=== PATIENT | male | born 1970 | race Caucasian/White ===

== ENCOUNTER 2020-01-12 14:54 | Emergency (ER) | payer SELFPAY ==
[~2020-01-12] VITALS: Ht 178 cm; Wt 68.0 kg
--- NOTE | 2020-01-12 15:35 | ED EENT ---
History of Present Illness General Chief Complaint: Dental Problems/Pain Stated Complaint: DENTAL PAIN Nursing Triage Note: Patient reports L sided dental pain starting on Tuesday the 08 of January and swelling that started last night. Source: patient Exam Limitations: no limitations History of Present Illness Date Seen by Provider: Jan 12, 2020 Time Seen by Provider: 15:32 Initial Comments This is a well-appearing 49-year-old male who presents to the ER with complaints of left-sided dental pain that began Tuesday. Sates he woke up Tuesday morning with left-sided facial swelling. He does have a dental appointment on Tuesday, but felt he needed further evaluation due to the swelling. Denies fevers, chills, nausea, vomiting. Allergies and Home Medications Allergies Coded Allergies: No Known Drug Allergies (Unverified , 01/12/20) Home Medications Amoxicillin/Potassium Clav 1 Each Tablet, 1 EACH PO BID Prescribed by: JULISA POE on 01/12/20 1537 Patient Home Medication List Home Medication List Reviewed: Yes Review of Systems Review of Systems Constitutional: no symptoms reported Eyes: No Symptoms Reported Ears: No Symptoms Reported Nose: no symptoms reported Mouth: see HPI Throat: no symptoms reported Respiratory: no symptoms reported Cardiovascular: no symptoms reported Gastrointestinal: no symptoms reported Musculoskeletal: no symptoms reported Skin: no symptoms reported Neurological: No Symptoms Reported Hematologic/Lymphatic: No Symptoms Reported Immunological/Allergic: no symptoms reported Past Dzuxuez-Mcgkrl-Baeeux Hx Patient Social History Alcohol Use: Occasionally Uses Alcohol Beverage of Choice: Beer Recreational Drug Use: No Smoking Status: Current Everyday Smoker Type Used: Cigars 2nd Hand Smoke Exposure: Yes Recent Foreign Travel: No Contact w/Someone Who Travel: No Recent Infectious Disease Expo: No Past Medical History Surgeries: No Respiratory: No Cardiac: No Neurological: No Genitourinary: No Gastrointestinal: No Musculoskeletal: No Endocrine: No HEENT: No Cancer: No Psychosocial: No Integumentary: No Blood Disorders: No Physical Exam Vital Signs Vital Signs - First Documented 01/12/20 15:00 Temp 36.8 Pulse 84 Resp 18 B/P (MAP) 160/93 (115) Pulse Ox 98 Height, Weight, BMI Height: '" Weight: lbs. oz. kg; 21.00 BMI Method: General Appearance: WD/WN, no apparent distress Nose: normal inspection Mouth/Throat: dental tenderness (Tooth #24, broken, tender w/ tapping. ), maxillary swelling (left ); No tonsillar swelling, No trismus; other Neck: non-tender, full range of motion, supple, normal inspection Cardiovascular: regular rate, rhythm, no edema, no gallop Respiratory: chest non-tender, lungs clear, normal breath sounds, no respiratory distress Gastrointestinal: normal bowel sounds, non tender, soft Neurologic/Psychiatric: no motor/sensory deficits, alert, normal mood/affect, oriented x 3 Skin: normal color, warm/dry Progress/Results/Core Measures Results/Orders My Orders Orders - JULISA POE APRN Amoxicillin/Clavulanate Tablet (Augmenti (01/12/20 15:45) Medications Given in ED Current Medications Medications Dose Ordered Sig/Mahin Route Start Time Stop Time Status Last Admin Dose Admin Amoxicillin/ Clavulanate Potassium 875 mg ONCE ONCE PO 01/12/20 15:45 01/12/20 15:40 DC 01/12/20 15:39 875 MG Vital Signs/I&O 01/12/20 01/12/20 15:00 15:42 Temp 36.8 36.8 Pulse 84 84 Resp 18 18 B/P (MAP) 160/93 (115) 160/93 (115) Pulse Ox 98 98 Blood Pressure Mean: 115 Progress Progress Note : Progress Note He has follow up with dentist scheduled on Tuesday. Discussed use of ice and NOT heat for swelling/pain. Ibuprofen to be taken with food and to complete full course of Augmentin, first dose given in ED. Verbalized understanding of discharge plan of care. Departure Impression Primary Impression: Dental abscess Disposition: 01 HOME, SELF-CARE Condition: Stable/Unchanged Departure-Patient Inst. Decision time for Depature: 15:33 Referrals: NO,LOCAL PHYSICIAN (PCP/Family) Primary Care Physician Patient Instructions: Fractured Tooth (DC), Tooth Decay, Adult (DC) Add. Discharge Instructions: Plan: 1. Discharge home. 2. Use ice 20 minutes at a time every couple hours as needed for discomfort. 3. Sleep in a reclined position. 4. May take Ibuprofen 600mg by mouth every 8 hours as needed for pain, take with food. 5. Take Augmentin twice a day as directed and keep follow up appointment with dentist on Tuesday. 6. Return for any new or worsening symptoms. All discharge instructions reviewed with patient and/or family. Voiced understanding. Scripts Amoxicillin/Potassium Clav (Augmentin 875-125 Tablet) 1 Each Tablet 1 EACH PO BID for 10 Days, #14 TAB 0 Refills Prov: JULISA POE APRN 01/12/20 JULISA POE APRN Jan 12, 2020 15:35
[2020-01-12] MEDS ORDERED: AMOX-358 PO (15:37)
[2020-01-12 15:42] VITALS: BP 160/93
[2020-01-12] MEDS ORDERED: AUGMENTIN 875 MG TAB (AMOXICILLIN/CLAVULANATE) PO ONE (15:45)
== END 2020-01-12 15:40 | disposition home or self-care (01) ==
LOC: EDUNIT# 14:54 → ER 14:56
DX: K04.7 Periapical abscess without sinus (principal); F17.290 Nicotine dependence, other tobacco product, uncomplicated
CPT/HCPCS: 99283

== ENCOUNTER 2020-04-25 02:45 | Emergency (ER) | payer SELFPAY ==
[~2020-04-25] VITALS: Ht 178 cm; Wt 68.0 kg
[~2020-04-25 02:45] MED LIST: AMOX-358 PO
[2020-04-25] MEDS ORDERED: NS IV 1000 ML 1,000 ML IV SCH (03:00)
[2020-04-25] MEDS ORDERED: PANTOPRAZOLE 40 MG (PROTONIX) VIAL IV ONE (03:00)
[2020-04-25 03:02] LABS: BASOPHILS % (AUTO) 1 % (0-10); EOSINOPHILS # (AUTO) 0.7 10^3/uL (0.0-0.3); EOSINOPHILS % (AUTO) 8 % (0-10); HEMATOCRIT 44 % (40-54); HEMOGLOBIN 15.9 g/dL (13.3-17.7); LYMPHOCYTES # (AUTO) 3.1 10^3/uL (1.0-4.0); LYMPHOCYTES % (AUTO) 39 % (12-44); MEAN CORPUSCULAR HEMOGLOBIN 29 pg (25-34); MEAN CORPUSCULAR HGB CONC 36 g/dL (32-36); MEAN CORPUSCULAR VOLUME 81 fL (80-99); MEAN PLATELET VOLUME 9.6 fL (9.0-12.2); MONOCYTES % (AUTO) 12 % (0-12); NEUTROPHILS # (AUTO) 3.2 10^3/uL (1.8-7.8); NEUTROPHILS % (AUTO) 40 % (42-75); PLATELET COUNT 257 10^3/uL (130-400)
[2020-04-25 03:07] LABS: INR 0.9 (0.8-1.4); PROTHROMBIN TIME PATIENT 12.5 SEC (12.2-14.7)
[2020-04-25 03:22] LABS: ALBUMIN 4.4 GM/DL (3.2-4.5); CHLORIDE 100 MMOL/L (98-107); POTASSIUM 3.8 MMOL/L (3.6-5.0); SODIUM 135 MMOL/L (135-145)
[2020-04-25 03:24] LABS: AMYLASE 40 U/L (25-125); CALCIUM 8.9 MG/DL (8.5-10.1)
[2020-04-25 03:25] LABS: GLUCOSE 95 MG/DL (70-105)
[2020-04-25 03:26] LABS: CARBON DIOXIDE 22 MMOL/L (21-32)
[2020-04-25 03:27] LABS: BILIRUBIN,TOTAL 0.9 MG/DL (0.1-1.0)
[2020-04-25 03:28] LABS: ALKALINE PHOSPHATASE 81 U/L (40-136); GFR ESTIMATED 58
[2020-04-25 03:30] LABS: BUN/CREATININE RATIO 18
[2020-04-25 03:31] LABS: SALICYLATE < 5.0 MG/DL (5.0-20.0)
[2020-04-25 03:32] LABS: ACETAMINOPHEN < 10 UG/ML (10-30); ALANINE AMINOTRANSFERASE 16 U/L (0-55)
[2020-04-25 03:32] LABS: BILIRUBIN,URINE NEGATIVE (NEGATIVE); CLARITY,URINE SL CLOUDY; COLOR,URINE YELLOW; GLUCOSE, URINE (UA) NEGATIVE (NEGATIVE); KETONES,URINE 1+ (NEGATIVE); LEUKOCYTE ESTERASE ,URINE NEGATIVE (NEGATIVE); NITRITE,URINE NEGATIVE (NEGATIVE); PH,URINE 5.5 (5-9); PROTEIN,URINE NEGATIVE (NEGATIVE)
[2020-04-25 03:33] LABS: LIPASE 27 U/L (8-78)
--- NOTE | 2020-04-25 03:38 | ED Abdominal Pain ---
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 DENIES N/V. PT STATES HE IS HOMELESS AND EATS FOOD OUT OF TRASH, WATER OUT OF TAP, AND HASN'T SLEPT FLAT IN OVER A WEEK HE HAS BEEN LIVING OUT OF HIS TRUCK. 18G TO LAC EN ROUTE VIA EMS WITH NS 1L INFUSING. Sepsis Screen: No Definite Risk Source of Information: Patient History of Present Illness Date Seen by Provider: Apr 25, 2020 Time Seen by Provider: 02:47 Initial Comments PT ARRIVES VIA EMS STATES HE BEGAN HAVING UPPER ABDOMINAL PAIN APPROXIMATELY 1 HOUR AGO NO NAUSEA/VOMITING/DIARRHEA OR CONSTIPATION. HAD A NORMAL BM YESTERDAY--NO BLACK/BLOODY/TARRY STOOLS NO URINARY SYMPTOMS NO FEVER/SWEATS/CHILLS NO CHEST PAIN OR SHORTNESS OF BREATH PT STATES HE TOOK 6 IBUPROFEN BEFORE HE TRIED TO GO TO SLEEP "BECAUSE I WAS ANXIOUS" PT STATES HE IS HOMELESS--GOT KICKED OUT OF HIS RESIDENCE "3 DAYS AGO" BECAUSE HE COULDN'T PAY THE RENT ( LATER STATES IT HAS BEEN A WEEK) --AND HAS BEEN LIVING IN HIS TRUCK AND HAS NOT BEEN ABLE TO LAY FLAT SINCE AND HAS NOT BEEN ABLE TO SLEEP STATES HE HAS BEEN EATING OUT OF TRASH BINS, AND DRINKING WATER OUT OF TAPS PT THINKS HE MIGHT HAVE BEEN EXPOSED TO COVID-19 A FEW DAYS AGO "BUT I'M NOT SURE" OR BY WHOM HE MIGHT HAVE BEEN EXPOSED PT DENIES ANY COVID-19 SYMPTOMS OF ANY KIND PT STATES HE HAS BEEN LIVING BY HIMSELF FOR A LONG TIME PT IS UNEMPLOYED PT WITH LONG HISTORY OF POLYSUBSTANCE ABUSE--STATES "I'VE DONE EVERYTHING" --STATES HE LAST SMOKED "ICE" ( METH) A COUPLE OF DAYS AGO DENIES ANY ETOH USE FOR ABOUT A YEAR. DENIES ANY PRIOR STOMACH OR GI PROBLEMS DENIES ANY PRIOR ABDOMINAL SURGERIES PCP: NONE STATES HE MOVED HERE 5 YEARS AGO FROM [place] Allergies and Home Medications Allergies Coded Allergies: No Known Drug Allergies (Unverified , 01/12/20) Home Medications Amoxicillin/Potassium Clav 1 Each Tablet, 1 EACH PO BID Prescribed by: JULISA POE on 01/12/20 5457 Pantoprazole Sodium 40 Mg Tablet., 40 MG PO DAILY Prescribed by: AMERICO BONILLA on 04/25/20 9865 Patient Home Medication List Home Medication List Reviewed: Yes Review of Systems Review of Systems Constitutional: other (STATES HE IS TIRED, BECAUSE HE HAS NOT BEEN ABLE TO SL EEP WELL IN HIS TRUCK) EENTM: No Symptoms Reported; No Nose Congestion, No Throat Pain Respiratory: No Symptoms Reported; Denies Cough, Denies Shortness of Air Cardiovascular: No Symptoms Reported; Denies Chest Pain, Denies Edema, Denies Irregular Heart Rate, Denies Lightheadedness, Denies Palpitations, Denies Syncop e Gastrointestinal: See HPI, Abdominal Pain; Denies Constipated, Denies Diarrhea, Denies Nausea, Denies Vomiting Genitourinary: No Symptoms Reported Musculoskeletal: no symptoms reported; No back pain Skin: no symptoms reported Psychiatric/Neurological: See HPI Endocrine: No Symptoms Reported Hematologic/Lymphatic: No Symptoms Reported Past Gfuvkam-Puckjc-Qhtxht Hx Past Med/Social Hx: Reviewed and Corrections made Patient Social History Alcohol Use: Occasionally Uses Number of Drinks Today: AA Alcohol Beverage of Choice: Beer Drug of Choice: "ALL OF THEM" Smoking Status: Current Everyday Smoker (1/2 PPD CIGARETTES OR CIGARS) Type Used: Cigars, Cigarettes 2nd Hand Smoke Exposure: Yes Recent Infectious Disease Expo: No Substance type: Methamphetamine, Hallucinogens, Marijuana, Other (COCAINE, ACID. DENIES IV USE. DENIES "PILLS" ) Past Medical History Surgeries: Yes (LITHOTRIPSY) Renal Respiratory: No Cardiac: No Neurological: No Genitourinary: Yes (LITHOTRIPSY) Kidney Stones Gastrointestinal: No Musculoskeletal: No Endocrine: No HEENT: No Cancer: No Psychosocial: No Integumentary: No Blood Disorders: No Physical Exam Vital Signs Vital Signs - First Documented 04/25/20 02:47 Temp 36.3 Pulse 77 Resp 22 B/P (MAP) 163/109 (127) O2 Delivery Room Air Capillary Refill : Less Than 3 Seconds Height/Weight/BMI Height: '" Weight: lbs. oz. kg; 21.00 BMI Method: General Appearance: WD/WN, no apparent distress, thin, other (DIRTY/UNKEMPT. 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, no motor/sensory deficits, alert, normal mood/affect, oriented x 3 Skin: normal color, warm/dry, tattoos/piercings (TATTOOS) Progress/Results/Core Measures Results/Orders Lab Results Laboratory Tests Test 04/25/20 02:50 04/25/20 03:05 04/25/20 03:20 Range/Units White Blood Count 8.0 4.3-11.0 10^3/uL Red Blood Count 5.48 4.30-5.52 10^6/uL Hemoglobin 15.9 13.3-17.7 g/dL Hematocrit 44 40-54 % Mean Corpuscular Volume 81 80-99 fL Mean Corpuscular Hemoglobin 29 25-34 pg Mean Corpuscular Hemoglobin Concent 36 32-36 g/dL Red Cell Distribution Width 13.2 10.0-14.5 % Platelet Count 257 130-400 10^3/uL Mean Platelet Volume 9.6 9.0-12.2 fL Immature Granulocyte % (Auto) 0 % Neutrophils (%) (Auto) 40 L 42-75 % Lymphocytes (%) (Auto) 39 12-44 % Monocytes (%) (Auto) 12 0-12 % Eosinophils (%) (Auto) 8 0-10 % Basophils (%) (Auto) 1 0-10 % Neutrophils # (Auto) 3.2 1.8-7.8 10^3/uL Lymphocytes # (Auto) 3.1 1.0-4.0 10^3/uL Monocytes # (Auto) 1.0 0.0-1.0 10^3/uL Eosinophils # (Auto) 0.7 H 0.0-0.3 10^3/uL Basophils # (Auto) 0.0 0.0-0.1 10^3/uL Immature Granulocyte # (Auto) 0.0 0.0-0.1 10^3/uL Prothrombin Time 12.5 12.2-14.7 SEC INR Comment 0.9 0.8-1.4 Activated Partial Thromboplast Time 30 24-35 SEC Sodium Level 135 135-145 MMOL/L Potassium Level 3.8 3.6-5.0 MMOL/L Chloride Level 100 98-107 MMOL/L Carbon Dioxide Level 22 21-32 MMOL/L Anion Gap 13 5-14 MMOL/L Blood Urea Nitrogen 23 H 7-18 MG/DL Creatinine 1.30 0.60-1.30 MG/DL Estimat Glomerular Filtration Rate 58 BUN/Creatinine Ratio 18 Glucose Level 95 70-105 MG/DL Calcium Level 8.9 8.5-10.1 MG/DL Corrected Calcium 8.6 8.5-10.1 MG/DL Magnesium Level 2.0 1.6-2.4 MG/DL Total Bilirubin 0.9 0.1-1.0 MG/DL Aspartate Amino Transf (AST/SGOT) 17 5-34 U/L Alanine Aminotransferase (ALT/SGPT) 16 0-55 U/L Alkaline Phosphatase 81 40-136 U/L Troponin I < 0.028 <0.028 NG/ML Total Protein 6.4-8.2 GM/DL Albumin 4.4 3.2-4.5 GM/DL Amylase Level 40 25-125 U/L Lipase 27 8-78 U/L Salicylates Level < 5.0 L 5.0-20.0 MG/DL Acetaminophen Level < 10 L 10-30 UG/ML Serum Alcohol < 10 <10 MG/DL Coronavirus 2019 (JAMAL) Negative Negative Urine Color YELLOW Urine Clarity SL CLOUDY Urine pH 5.5 5-9 Urine Specific Reliance >=1.030 1.016-1.022 Urine Protein NEGATIVE NEGATIVE Urine Glucose (UA) NEGATIVE NEGATIVE Urine Ketones 1+ H NEGATIVE Urine Nitrite NEGATIVE NEGATIVE Urine Bilirubin NEGATIVE NEGATIVE Urine Urobilinogen 0.2 < = 1.0 MG/DL Urine Leukocyte Esterase NEGATIVE NEGATIVE Urine RBC (Auto) NEGATIVE NEGATIVE Urine RBC NONE /HPF Urine WBC 0-2 /HPF Urine Squamous Epithelial Cells RARE /HPF Urine Crystals NONE /LPF Urine Bacteria NEGATIVE /HPF Urine Casts NONE /LPF Urine Mucus SMALL H /LPF Urine Culture Indicated NO Urine Opiates Screen NEGATIVE NEGATIVE Urine Oxycodone Screen NEGATIVE NEGATIVE Urine Methadone Screen NEGATIVE NEGATIVE Urine Propoxyphene Screen NEGATIVE NEGATIVE Urine Barbiturates Screen NEGATIVE NEGATIVE Ur Tricyclic Antidepressants Screen NEGATIVE NEGATIVE Urine Phencyclidine Screen NEGATIVE NEGATIVE Urine Amphetamines Screen POSITIVE H NEGATIVE Urine Methamphetamines Screen POSITIVE H NEGATIVE Urine Benzodiazepines Screen NEGATIVE NEGATIVE Urine Cocaine Screen NEGATIVE NEGATIVE Urine Cannabinoids Screen POSITIVE H NEGATIVE My Orders Orders - AMERICO BONILLA DO Ed Iv/Invasive Line Start (04/25/20 02:54) Ekg Tracing (04/25/20 02:54) Monitor-Rhythm Ecg Trace Only (04/25/20 02:54) Acetaminophen (04/25/20 02:54) Alcohol (04/25/20 02:54) Amylase (04/25/20 02:54) Cbc With Automated Diff (04/25/20 02:54) Comprehensive Metabolic Panel (04/25/20 02:54) Drug Screen Stat (Urine) (04/25/20 02:54) Lipase (04/25/20 02:54) Magnesium (04/25/20 02:54) Protime With Inr (04/25/20 02:54) Partial Thromboplastin Time (04/25/20 02:54) Salicylate (04/25/20 02:54) Ua Culture If Indicated (04/25/20 02:54) Troponin I (04/25/20 02:54) Coronavirus Sars-Cov-2 So 2018 (04/25/20 02:54) Covid 19 Inhouse Test (04/25/20 02:54) Ed Iv/Invasive Line Start (04/25/20 02:54) Ns Iv 1000 Ml (Sodium Chloride 0.9%) (04/25/20 03:00) Pantoprazole Injection (Protonix Injecti (04/25/20 03:00) Ct Abdomen/Pelvis W (04/25/20 03:44) Medications Given in ED Current Medications Medications Dose Ordered Sig/Mahin Route Start Time Stop Time Status Last Admin Dose Admin Pantoprazole 40 mg ONCE ONCE IV 04/25/20 03:00 04/25/20 03:01 DC 04/25/20 03:05 40 MG Vital Signs/I&O 04/25/20 02:47 Temp 36.3 Pulse 77 Resp 22 B/P (MAP) 163/109 (127) O2 Delivery Room Air Blood Pressure Mean: 127 Progress Progress Note : Progress Note PLACED IN ISOLATION ROOM PPE WORN AT ALL TIMES COVID-19 TESTING PERFORMED SOON HE ARRIVES, HE STATES HE JUST WANTS TO GO TO SLEEP NOW. PT HAS NO COMPLAINTS OF ABDOMINAL PAIN AFTER HE ARRIVES IN ER PT SLEPT/RESTED QUIETLY FOR REMAINDER OF ER STAY HAD NO COMPLAINTS OF ANY KIND FOR ENTIRE ER STAY. Initial ECG Impression Date: Apr 25, 2020 Initial ECG Impression Time: 03:15 Initial ECG Rate: 49 Initial ECG Rhythm: S.Morgan Initial ECG Comparisson: No Previous ECG Available Diagnostic Imaging Comments CT ABDOMEN/PELVIS--NO ACUTE FINDINGS, PER [facility] VIA FAX AT [id number] Reviewed: Reviewed by Me Departure Impression Primary Impression: Illicit drug use Additional Impressions: Epigastric abdominal pain Homeless Disposition: HOME, SELF-CARE Condition: Improved Departure-Patient Inst. Referrals: NO,LOCAL PHYSICIAN (PCP/Family) Primary Care Physician Patient Instructions: Severe Abdominal Pain, Adult (DC), Drug Abuse and Drug Addiction (DC) Add. Discharge Instructions: CLEAR LIQUIDS--WATER, GATORADE BRATS DIET--BANANAS, RICE, APPLESAUCE, TOAST, SALTINES NO DRUGS OR ALCOHOL NO TYLENOL OR IBUPROFEN OR OTHER OVER THE COUNTER PAIN MEDICATIONS FOLLOW UP WITH OF CHOICE IN 2-3 DAYS FOR FURTHER CARE All discharge instructions reviewed with patient and/or family. Voiced understanding. Scripts Pantoprazole Sodium (Protonix) 40 Mg Tablet. 40 MG PO DAILY, #15 TAB Prov: AMERICO BONILLA DO 04/25/20 Work/School Note: Local [employer] Listing AMERICO BONILLA DO Apr 25, 2020 03:38
[2020-04-25 03:45] LABS: AMPHETAMINE SCREEN, URINE POSITIVE (NEGATIVE); BARBITURATE SCREEN URINE NEGATIVE (NEGATIVE); BENZODIAZEPINES SCREEN URINE NEGATIVE (NEGATIVE); CANNABINOID SCREEN, URINE POSITIVE (NEGATIVE); COCAINE SCREEN URINE NEGATIVE (NEGATIVE); METHADONE STAT NEGATIVE (NEGATIVE); METHAMPHETAMINE SCREEN URINE S POSITIVE (NEGATIVE); OPIATE SCREEN URINE NEGATIVE (NEGATIVE); OXYCODONE STAT NEGATIVE (NEGATIVE); PROPOXYPHENE STAT NEGATIVE (NEGATIVE); TRICYCLIC ANTIDEPRESSANTS SCRE NEGATIVE (NEGATIVE)
[2020-04-25 03:46] LABS: BACTERIA,URINE NEGATIVE /HPF; SQUAMOUS EPITHELIAL CELL,UR RARE /HPF; WBC,URINE 0-2 /HPF
[2020-04-25] MEDS ORDERED: PANT40TA2 PO (04:45)
[2020-04-25 04:54] VITALS: BP 113/88
[2020-04-25] MEDS ORDERED: HOLD METFORMIN - RECEIVED CONTRAST 20 ML VIAL IV SCH (05:00)
[2020-04-25] MEDS ORDERED: NS 100 ML (IVPB) BAG IV ONE (05:00)
[2020-04-25] MEDS ORDERED: CATHETER FLUSH 10 ML SYR IV PRN (05:00)
[2020-04-25] MEDS ORDERED: IOHEXOL 350 MG/ML 100 ML (OMNIPAQUE 350) VIAL IV ONE (05:00)
--- NOTE | 2020-04-25 07:35 | Diagnostic Imaging Report ---
PROCEDURE: CT abdomen and pelvis with contrast. TECHNIQUE: Multiple contiguous axial images were obtained through the abdomen and pelvis after administration of intravenous contrast. Auto Exposure Controls were utilized during the CT exam to meet ALARA standards for radiation dose reduction. All CT scans use one or more of the following dose optimizing techniques: automated exposure control, MA and/or KvP adjustment based on patient size and exam type or iterative reconstruction. INDICATION: Epigastric pain, upper abdominal pains starting one hour prior to admission. Denies nausea and vomiting. Patient is homeless. Previous history of kidney stones. COMPARISON STUDIES: None FINDINGS: Lung bases are clear. There is a minimal hiatal hernia. The liver, gallbladder, spleen, pancreas, adrenal glands and kidneys are normal. Stomach is decompressed. Wall thickening cannot be excluded. Moderate amount of stool seen in the colon. Urinary bladder, prostate gland appear unremarkable. No hernias are present. There is no ascites, free air or abnormal adenopathy. No inflammatory changes present. Vascular structures appear normal. The osseous structures are normal. IMPRESSION: There are no acute findings. Questionable constipation. Dictated by: Dictated on workstation # [id number]
== END 2020-04-25 04:55 | disposition home or self-care (01) ==
LOC: EDUNIT# 02:45 → ER 02:46
DX: F19.90 Other psychoactive substance use, unspecified, uncomplicated (principal); R10.13 Epigastric pain; F17.210 Nicotine dependence, cigarettes, uncomplicated; F17.290 Nicotine dependence, other tobacco product, uncomplicated; Z59.0 Homelessness; Z20.822 Contact with and (suspected) exposure to COVID-19
CPT/HCPCS: 74177; 80053; 80306; 81000; 82150; 83690; 83735; 84484; 85025; 85610; 85730; 93005; 93041; 99284; G0480 ×3; U0002; 36415; 80320; 80329; 87635

== ENCOUNTER 2021-09-28 16:14 | Emergency (ER) | payer SELFPAY ==
[~2021-09-28] VITALS: Ht 177.8 cm; Wt 70.3 kg
[~2021-09-28 16:14] MED LIST changes: +PANT40TA2 PO
--- NOTE | 2021-09-28 17:44 | ED Cough/URI ---
General Chief Complaint: COVID19 Suspect/Confirmed Stated Complaint: HEADACHE - CHILLS- SORE THROAT - FATIGUE Nursing Triage Note: PT AMB TO [facility] 6 WITH CC OF COUGH, FEVER, BODY CHILLS, SORE THROAT, SANTOS, AND FATIGUE SINCE TODAY. PT REPORTS TAKING IBPROFEN THIS AFTERNOON Source: patient Exam Limitations: no limitations History of Present Illness Date Seen by Provider: Sep 28, 2021 Time Seen by Provider: 17:42 Initial Comments Patient is a 51-year-old male who presents the ED for flulike symptoms. Symptoms started today with body aches, chills, headache and cough. Reports a dry nonproductive cough. No chest pain, abdominal pain vomiting, diarrhea. Reports feeling feverish. Possible exposure to COVID. Denies of any known medical problems. History of smoking. Not up-to-date on his COVID-vaccine. Denies visual changes, worsening head pain, neck pain, leg weakness Allergies and Home Medications Allergies Coded Allergies: No Known Drug Allergies (Unverified , 01/12/20) Patient Home Medication List Home Medication List Reviewed: Yes Amoxicillin/Potassium Clav (Augmentin 875-125 Tablet) 1 Each Tablet, 1 EACH PO BID Prescribed by: JULISA POE on 01/12/20 1537 Pantoprazole Sodium (Protonix) 40 Mg Tablet.dr, 40 MG PO DAILY Prescribed by: AMERICO BONILLA on 04/25/20 0445 Review of Systems Review of Systems Constitutional: No chills, No diaphoresis; malaise, weakness EENTM: No blurred vision, No double vision Respiratory: cough; No dyspnea on exertion, No short of breath Cardiovascular: No chest pain Gastrointestinal: No abdominal pain, No nausea, No vomiting Musculoskeletal: No back pain, No gout Skin: No change in color, No change in hair/nails All Other Systems Reviewed Negative Unless Noted: Yes Past Ucrfjqa-Evmvrj-Pkkamg Hx Patient Social History Tobacco Use?: Yes Tobacco type used: Cigars Smoking Status: Current Everyday Smoker Substance use?: Yes Substance type: Marijuana Substance frequency: Several times a month Alcohol Use?: Yes Alcohol Frequency: Rarely Pt feels they are or have been: No Past Medical History Surgeries: Yes (LITHOTRIPSY) Renal Respiratory: No Cardiac: No Neurological: No Genitourinary: Yes (LITHOTRIPSY) Kidney Stones Gastrointestinal: No Musculoskeletal: No Endocrine: No HEENT: No Cancer: No Psychosocial: No Integumentary: No Blood Disorders: No Physical Exam Vital Signs - First Documented 09/28/21 16:40 Temp 36.4 Pulse 61 Resp 14 B/P (MAP) 121/76 (91) Pulse Ox 96 O2 Delivery Room Air Capillary Refill : Less Than 3 Seconds Height: '" Weight: lbs. oz. kg; 22.00 BMI Method: General Appearance: WD/WN, no apparent distress Eyes: Bilateral Eye Normal Inspection, Bilateral Eye PERRL, Bilateral Eye Abnormal EOM HEENT: PERRL/EOMI, normal ENT inspection, TMs normal, pharynx normal Neck: full range of motion, supple, normal inspection Respiratory: chest non-tender, lungs clear, normal breath sounds, no respiratory distress, no accessory muscle use Cardiovascular: regular rate, rhythm, no edema, no gallop Gastrointestinal: normal bowel sounds, non tender, soft, no organomegaly Extremities: normal range of motion, non-tender, normal inspection, no pedal edema, no calf tenderness 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, no motor/sensory deficits, alert, normal mood/affect Skin: normal color Progress/Results/Core Measures Suspected Sepsis SIRS Temperature: Pulse: 61 Respiratory Rate: 14 Laboratory Tests 09/28/21 17:58: White Blood Count 5.2 Blood Pressure 121 /76 Mean: 91 Laboratory Tests 09/28/21 17:58: Creatinine 1.06, Platelet Count 197, Total Bilirubin 0.3 Results/Orders Lab Results Laboratory Tests Test 09/28/21 17:00 09/28/21 17:58 Range/Units Influenza Type A (RT-PCR) Not Detected Not Detecte Influenza Type B (RT-PCR) Not Detected Not Detecte SARS-CoV-2 RNA (RT-PCR) Detected H Not Detecte White Blood Count 5.2 4.3-11.0 10^3/uL Red Blood Count 4.60 4.30-5.52 10^6/uL Hemoglobin 13.5 13.3-17.7 g/dL Hematocrit 37 L 40-54 % Mean Corpuscular Volume 81 80-99 fL Mean Corpuscular Hemoglobin 29 25-34 pg Mean Corpuscular Hemoglobin Concent 36 32-36 g/dL Red Cell Distribution Width 13.3 10.0-14.5 % Platelet Count 197 130-400 10^3/uL Mean Platelet Volume 9.3 9.0-12.2 fL Immature Granulocyte % (Auto) 0 % Neutrophils (%) (Auto) 59 42-75 % Lymphocytes (%) (Auto) 17 12-44 % Monocytes (%) (Auto) 22 H 0-12 % Eosinophils (%) (Auto) 2 0-10 % Basophils (%) (Auto) 0 0-10 % Neutrophils # (Auto) 3.0 1.8-7.8 10^3/uL Lymphocytes # (Auto) 0.9 L 1.0-4.0 10^3/uL Monocytes # (Auto) 1.1 H 0.0-1.0 10^3/uL Eosinophils # (Auto) 0.1 0.0-0.3 10^3/uL Basophils # (Auto) 0.0 0.0-0.1 10^3/uL Immature Granulocyte # (Auto) 0.0 0.0-0.1 10^3/uL Neutrophils % (Manual) 60 % Lymphocytes % (Manual) 19 % Monocytes % (Manual) 19 % Eosinophils % (Manual) 1 % Basophils % (Manual) 1 % Band Neutrophils 0 % Blood Morphology Comment NORMAL Sodium Level 139 135-145 MMOL/L Potassium Level 3.6 3.6-5.0 MMOL/L Chloride Level 103 98-107 MMOL/L Carbon Dioxide Level 24 21-32 MMOL/L Anion Gap 12 5-14 MMOL/L Blood Urea Nitrogen 12 7-18 MG/DL Creatinine 1.06 0.60-1.30 MG/DL Estimat Glomerular Filtration Rate 84 BUN/Creatinine Ratio 11 Glucose Level 92 70-105 MG/DL Calcium Level 8.1 L 8.5-10.1 MG/DL Corrected Calcium 8.3 L 8.5-10.1 MG/DL Total Bilirubin 0.3 0.1-1.0 MG/DL Aspartate Amino Transf (AST/SGOT) 13 5-34 U/L Alanine Aminotransferase (ALT/SGPT) 12 0-55 U/L Alkaline Phosphatase 59 40-136 U/L Total Protein 6.6 6.4-8.2 GM/DL Albumin 3.7 3.2-4.5 GM/DL My Orders Orders - MAYE HALLid 19 Inhouse Test (09/28/21 17:04) Influenza A And B By Pcr (09/28/21 17:04) Cbc With Automated Diff (09/28/21 17:40) Comprehensive Metabolic Panel (09/28/21 17:40) Rx-Nirmatrelvir/Ritonavir(Eua) (Rx-Paxlo (09/28/21 17:48) Manual Differential (09/28/21 17:58) Vital Signs/I&O 09/28/21 09/28/21 16:40 18:28 Temp 36.4 36.4 Pulse 61 60 Resp 14 14 B/P (MAP) 121/76 (91) 121/85 Pulse Ox 96 97 O2 Delivery Room Air Room Air Capillary Refill : Less Than 3 Seconds Blood Pressure Mean: 91 Departure Communication (PCP) Patient tested positive for COVID. Exam otherwise benign. Stable vital signs. Normal kidney function. Not currently on any medication. History of smoking. No chest pain, abdominal pain. Neuro exam unremarkable. Will discharge with Paxlovid. Recommend oral hydration, anti-inflammatories for pain and discomfort. Provided 10-day work note. Not up-to-date on his COVID-vaccine. If any worsening symptoms such as chest pain or shortness of breath to return back to ED. Discussed pulse ox to monitor oxygen level. Impression Primary Impression: COVID-19 Disposition: 01 HOME, SELF-CARE Condition: Stable Departure-Patient Inst. Decision time for Depature: 17:43 Referrals: [facility] [place] MARCELO,LOCAL PHYSICIAN (PCP) Primary Care Physician Patient Instructions: COVID-19 (DC) Work/School Note: Work Release Form Date Seen in the Emergency Department: Sep 28, 2021 Return to Work: Oct 07, 2021 MAYE HALL Sep 28, 2021 17:44
[2021-09-28] MEDS ORDERED: RX-NIRMATRELVIR/RITONAVIR (PAXLOVID) #30 TABS PO ONE (17:48)
[2021-09-28 18:04] LABS: BASOPHILS % (AUTO) 0 % (0-10); EOSINOPHILS # (AUTO) 0.1 10^3/uL (0.0-0.3); EOSINOPHILS % (AUTO) 2 % (0-10); HEMATOCRIT 37 % (40-54); HEMOGLOBIN 13.5 g/dL (13.3-17.7); LYMPHOCYTES # (AUTO) 0.9 10^3/uL (1.0-4.0); LYMPHOCYTES % (AUTO) 17 % (12-44); MEAN CORPUSCULAR HEMOGLOBIN 29 pg (25-34); MEAN CORPUSCULAR HGB CONC 36 g/dL (32-36); MEAN CORPUSCULAR VOLUME 81 fL (80-99); MEAN PLATELET VOLUME 9.3 fL (9.0-12.2); MONOCYTES # (AUTO) 1.1 10^3/uL (0.0-1.0); MONOCYTES % (AUTO) 22 % (0-12); NEUTROPHILS % (AUTO) 59 % (42-75); PLATELET COUNT 197 10^3/uL (130-400); WHITE BLOOD COUNT 5.2 10^3/uL (4.3-11.0)
[2021-09-28 18:18] LABS: ALBUMIN 3.7 GM/DL (3.2-4.5); POTASSIUM 3.6 MMOL/L (3.6-5.0)
[2021-09-28 18:19] LABS: CALCIUM 8.1 MG/DL (8.5-10.1)
[2021-09-28 18:21] LABS: TOTAL PROTEIN 6.6 GM/DL (6.4-8.2)
[2021-09-28 18:22] LABS: BILIRUBIN,TOTAL 0.3 MG/DL (0.1-1.0)
[2021-09-28 18:23] LABS: BAND NEUTROPHILS 0 %; BASOPHILS % (MANUAL) 1 %; EOSINOPHILS % (MANUAL) 1 %; LYMPHOCYTES % (MANUAL) 19 %; MONOCYTES % (MANUAL) 19 %; NEUTROPHILS % (MANUAL) 60 %; RBC MORPH NORMAL
[2021-09-28 18:24] LABS: CREATININE SERUM 1.06 MG/DL (0.60-1.30)
[2021-09-28 18:28] VITALS: BP 121/85
== END 2021-09-28 18:28 | disposition home or self-care (01) ==
LOC: EDUNIT# 16:14 → ER 16:17
DX: U07.1 COVID-19 (principal); F17.290 Nicotine dependence, other tobacco product, uncomplicated; Z28.310 Unvaccinated for COVID-19
CPT/HCPCS: 36415; 80053; 85007; 85027; 87636; 99283